=== PATIENT | female | born 1945 | race Caucasian/White ===

== ENCOUNTER → 2016-02-18 | Outpatient (CLI) | payer OTHER ==
--- NOTE | 2016-02-18 17:17 | DX ---
Right knee, 3 views History: Sudden onset medial pressure. Comparison: None available. Findings: No fracture is identified. Alignment is normal. Moderate osteoarthritis is present in the m edial compartment with mild to moderate joint space narrowing, subchondral sclerosis, and mild osteop hyte formation. There is moderate osteophyte formation in the lateral compartment without significant joint space narrowing. Small patellar osteophytes are present without significant joint space narrow ing. A small patellar enthesophyte is present at the insertion of the quadriceps tendon. There is no joint effusion. Impression: Mild to moderate osteoarthritis, most prominent in the medial compartment.
== END ==
LOC: GIMAGING 14:53
PROVIDERS: ATTEND Family Medicine
DX: M17.11 Unilateral primary osteoarthritis, right knee (principal)
CPT/HCPCS: 73562-PO

== ENCOUNTER → 2016-03-10 | Outpatient (CLI) | payer OTHER | LOC: BHLMT 14:00 | PROVIDERS: ATTEND Internal Medicine Cardiovascular Disease | DX: I71.9 Aortic aneurysm of unspecified site, without rupture (principal); I10 Essential (primary) hypertension; I08.0 Rheumatic disorders of both mitral and aortic valves | CPT/HCPCS: 93005-PO ==

== ENCOUNTER → 2016-03-18 | Outpatient (CLI) | payer OTHER | LOC: BHLMT 14:45 | PROVIDERS: ATTEND Internal Medicine Interventional Cardiology | DX: I35.0 Nonrheumatic aortic (valve) stenosis (principal); I71.9 Aortic aneurysm of unspecified site, without rupture | CPT/HCPCS: 93306-PO ==

== ENCOUNTER → 2017-03-24 | Outpatient (CLI) | payer OTHER | LOC: BHLMT 14:45 | PROVIDERS: ATTEND Internal Medicine Cardiovascular Disease | DX: I35.0 Nonrheumatic aortic (valve) stenosis (principal) | CPT/HCPCS: 93306-PO ==

== ENCOUNTER 2017-04-19 17:42 | Emergency (ER) | payer OTHER ==
[2017-04-19 17:50] VITALS: TEMP 97.9
--- NOTE | 2017-04-19 18:00 | EDPHY ---
H & P Stated Complaint: Intermittent tingling R side of body, sxs since Fri or Sat Time Seen by Provider: 04/19/17 17:59 HPI/ROS: CHIEF COMPLAINT: Intermittent right-sided paresthesias HISTORY OF PRESENT ILLNESS: The patient presents to the ED with a 2-3 history of intermittent vague right-sided paresthesias involving her hand and foot. The patient denies any associated weakness. She has no complaints of dysarthria or difficulty walking. The patient does have a chronic right facial droop which is unchanged. The patient does have a history of possible small CVA in 2013. At that point time she was noted to have normal cervical vessels. A brain MRI demonstrated no evidence of an obvious stroke. The patient was treated with tPA during that hospitalization. The patient denies any history of atrial fibrillation valvular heart disease. She has no additional complaints. The patient currently is asymptomatic. REVIEW OF SYSTEMS: A comprehensive 10 point review of systems is otherwise negative aside from elements mentioned in the history of present illness. Source: Patient Exam Limitations: No limitations - Personal History Current Tetanus Diphtheria and Acellular Pertussis (TDAP): Yes Tetanus Vaccine Date: 2012 - Medical/Surgical History Hx Asthma: No Hx Chronic Respiratory Disease: No Hx Diabetes: No Hx Cardiac Disease: No Hx Renal Disease: No Hx Cirrhosis: No Hx Alcoholism: No Hx HIV/AIDS: No Hx Splenectomy or Spleen Trauma: No Other PMH: Hysterectomy, Tonsils/Adenoids/, Tubal Lig, Rhinoplasty, Glaucoma, Dental Implants, Plate L wrist. enlarged heart, aortic root, CVA, fibromyalgia - Social History Smoking Status: Never smoked - Physical Exam Exam: General Appearance: Alert, no distress Eyes: Pupils equal and round no pallor or injection ENT, Mouth: Mucous membranes moist Respiratory: There are no retractions, lungs are clear to auscultation Cardiovascular: Regular rate and rhythm Gastrointestinal: Abdomen is soft and nontender, no masses, bowel sounds normal Neurological: Alert and oriented x4, moves all extremities with 5/5 strength, cranial nerves 2-12 intact, normal sellar ball function, NIH stroke scale is 0 Skin: Warm and dry, no rashes Musculoskeletal: Neck is supple nontender Extremities: symmetrical, full range of motion Constitutional: Initial Vital Signs Temperature (C) 36.6 C 04/19/17 17:46 Heart Rate 92 04/19/17 17:46 Respiratory Rate 16 04/19/17 17:46 Blood Pressure 154/101 H 18 17:46 O2 Sat (%) 96 04/19/17 17:46 O2 Delivery Mode Room Air Allergies/Adverse Reactions: morphine Allergy (Severe, Verified 04/19/17 17:56) Anaphylaxis iodine Allergy (Unknown, Verified 04/19/17 17:56) Anaphylaxis codeine Allergy (Verified 04/19/17 17:45) meperidine HCl [From Demerol] Allergy (Verified 04/19/17 17:45) oxycodone HCl [From Percodan] Allergy (Verified 04/19/17 17:45) oxycodone terephthalate [From Percodan] Allergy (Verified 04/19/17 17:45) propoxyphene HCl [From Darvon] Allergy (Verified 04/19/17 17:45) propoxyphene napsylate [From Darvocet-N] Allergy (Verified 04/19/17 17:45) Home Medications: Medication Instructions Recorded Albuterol Hfa Anes Only [Proair 2 puffs IH QID 04/19/17 Hfa Icu (*)] Aspirin [Aspirin 81mg (*)] 81 mg PO DAILY 18 Bifidobacterium Infantis [Align] 10.5 mg PO 04/19/17 Bupropion HCl [Bupropion HCl ER] 300 mg PO 04/19/17 Diclofenac Sodium 1% [Voltaren Gel 1 jair TP 04/19/17 (*)] Dorzolamide/Timolol [Cosopt (*)] 0 drops OPTH BID 04/19/17 Esomeprazole Magnesium [Nexium] 20 mg PO 04/19/17 Gabapentin [Neurontin 300 MG (*)] 300 mg PO HS 18 Hydrochlorothiazide [HCTZ (*)] 25 mg PO DAILY 18 Hydrocodone/Acetaminophen [Vicodin 1 each PO 04/19/17 5-300 mg Tablet] MILNACIPRAN HCL [Savella 100 mg] 100 mg PO 18 guaiFENesin [Mucinex 600 MG (*)] 600 mg PO BID 18 traZODone [traZODONE 50MG (*)] 50 mg PO 18 Medical Decision Making - Diagnostics EKG Interpretation: EKG: Complete interpretation has been separately recorded in the [facility] archive. Summary impression: Sinus rhythm, rate 82, inferior Q-waves unchanged from prior EKG. Imaging Results: Brain MRI without contrast: Images reviewed by myself and discussed with radiologist Dr. Cachorro Kolb. No evidence of an acute infarct, nonspecific white changes noted which were seen on prior imaging studies. Imaging: Discussed imaging studies w/ call worker person Radiologist, I viewed and interpreted images myself ED Course/Re-evaluation: I reviewed the patient's past medical records. She did have normal angiographic studies of her head and neck in 2013. Her NIH stroke scale is currently 0. She has had migratory paresthesias involving the right arm and leg for the past several days. She is currently on aspirin. The patient was taken for an MRI of her brain given her prior history and complaints. There is no evidence of an acute stroke noted on the studies today. The patient is currently on aspirin. The patient has no evidence of atrial fibrillation or uncontrolled hypertension. The patient had a negative carotid study several years ago. This point time I do feel the patient can be discharged home with instructions to follow up with her primary care provider and our on-call neurologist for further evaluation. The patient should return to the ED for any more significant neurologic symptoms, severe headache or other concerns. Differential Diagnosis: Differential diagnosis considered includes ischemic stroke, hemorrhagic stroke, TIA, carotid stenosis, arrhythmia, hypertension - Data Points Laboratory Results: Laboratory Results 04/19/17 18:20 18 18:20 18 04/19/17 18:20 18:20 WBC 7.68 10^3/uL 10^3/uL (3.80-9.50) RBC 4.32 10^6/uL 10^6/uL (4.18-5.33) Hgb 10.3 g/dL L g/dL (12.6-16.3) Hct 33.0 % L % (38.0-47.0) MCV 76.4 fL L fL (81.5-99.8) MCH 23.8 pg L pg (27.9-34.1) MCHC 31.2 g/dL L g/dL (32.4-36.7) RDW 19.1 % H % (11.5-15.2) Plt Count 464 10^3/uL H 10^3/uL (150-400) MPV 9.8 fL fL (8.7-11.7) Neut % (Auto) 57.1 % % (39.3-74.2) Lymph % (Auto) 29.3 % % (15.0-45.0) [place] % (Auto) 6.8 % % (4.5-13.0) Eos % (Auto) 5.9 % % (0.6-7.6) Baso % (Auto) 0.8 % % (0.3-1.7) Nucleat RBC Rel Count 0.0 % % (0.0-0.2) Absolute Neuts (auto) 4.39 10^3/uL 10^3/uL (1.70-6.50) Absolute Lymphs (auto) 2.25 10^3/uL 10^3/uL (1.00-3.00) Absolute Monos (auto) 0.52 10^3/uL 10^3/uL (0.30-0.80) Absolute Eos (auto) 0.45 10^3/uL H 10^3/uL (0.03-0.40) Absolute Basos (auto) 0.06 10^3/uL 10^3/uL (0.02-0.10) Absolute Nucleated RBC 0.00 10^3/uL 10^3/uL (0-0.01) Immature Gran % 0.1 % % (0.0-1.1) Immature Gran # 0.01 10^3/uL 10^3/uL (0.00-0.10) Sodium 141 mEq/L mEq/L (135-145) Potassium 3.6 mEq/L mEq/L (3.5-5.2) Chloride 101 mEq/L mEq/L (97-110) Carbon Dioxide 26 mEq/l mEq/l (22-31) Anion Gap 14 mEq/L mEq/L (8-16) BUN 13 mg/dL mg/dL (7-23) Creatinine 0.8 mg/dL mg/dL (0.6-1.0) Estimated GFR > 60 Glucose 98 mg/dL mg/dL (70-100) Calcium 9.0 mg/dL mg/dL (8.5-10.4) Departure - Departure Disposition: Home, Routine, Self-Care Clinical Impression: Paresthesias in right hand Condition: Good Instructions: Transient Ischemic Attack (ED) Additional Instructions: 1. Your brain MRI demonstrates no evidence of an obvious stroke. 2. Please follow up with a neurologist you have been referred to for further evaluation of any ongoing subtle symptoms. 3. Please return to the ED immediately for any severe headache, markedly worsening neurologic symptoms, difficulty with speech or ambulation. Referrals: Surendra Moe DO [Primary Care Provider] - As per Instructions Anoop Bach DO [Medical Doctor] - As per Instructions
[2017-04-19 18:35] LABS: PLATELET COUNT 464 10^3/uL (150-400)
--- NOTE | 2017-04-19 18:41 | CPEKG ---
Heart Rate: 82 RR Interval: 732 P-R Interval: 152 QRSD Interval: 92 QT Interval: 372 QTC Interval: 435 P [place]: 28 QRS [place]: 37 T Wave [place]: 14 EKG Severity - ABNORMAL ECG - EKG Impression: SINUS RHYTHM Electronically Signed By: Cheko Phan 19-Apr-2017 18:43:38
[2017-04-19 20:18] VITALS: BP 140/101; PULSE 85; RESP 18; O2SAT 99
== END 2017-04-19 20:36 | disposition home or self-care (01) ==
DX: R20.2 Paresthesia of skin (principal); Z79.82 Long term (current) use of aspirin; Z86.73 Personal history of transient ischemic attack (TIA), and cerebral infarction without residual deficits

== ENCOUNTER 2017-04-29 11:04 | Inpatient (IN) | payer OTHER ==
--- NOTE | 2017-04-29 11:19 | CPEKG ---
Heart Rate: 84 RR Interval: 714 P-R Interval: 160 QRSD Interval: 98 QT Interval: 420 QTC Interval: 497 P [place]: 0 QRS [place]: 24 T Wave [place]: 3 EKG Severity - ABNORMAL ECG - EKG Impression: SINUS RHYTHM EKG Impression: PROBABLE INFERIOR INFARCT, AGE INDETERMINATE EKG Impression: BORDERLINE PROLONGED QT INTERVAL Electronically Signed By: Conner Domínguez 29-Apr-2017 12:55:19
[2017-04-29 12:12] LABS: PLATELET COUNT 415 10^3/uL (150-400)
--- NOTE | 2017-04-29 12:31 | EDPHY ---
H & P Time Seen by Provider: 04/29/17 11:21 HPI/ROS: CHIEF COMPLAINT: Weakness and syncope HISTORY OF PRESENT ILLNESS: Patient does have a remote history of ulcer. She also has a history of bicuspid aortic valve and aortic stenosis. She has had some hemorrhoidal bleeding over the last 2 days as well. Patient has had about a week's worth of increasing fatigue, worse with exertion, not associated with shortness of breath or chest pain. 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 Arrival the patient still feels tired. Generalized weakness and not focal although she has some residual weakness after a previous stroke. Symptoms severe today. REVIEW OF SYSTEMS: Eye: no change in vision ENT: no sore throat Cardiac: No chest pain Pulmonary: no cough or SOB Abdomen: no vomiting, diarrhea, abdominal pain Musculoskeletal: no back pain Skin: no rash Neuro: no headache, tingling on the right side of her body for the last 2 weeks , negative MRI on April 19. Constitutional: no fever : no urinary symptoms A comprehensive 10 point review of systems is otherwise negative aside from elements mentioned in the history of present illness. PAST MEDICAL HISTORY: Includes hysterectomy, fibromyalgia, bicuspid aortic valve with aortic stenosis, glaucoma. Stroke. Social history: here with her , no alcohol General Appearance: Alert and conversant, cooperative. Eyes: No scleral icterus. Extraocular motion intact. ENT, Mouth: Normal mucous membranes. No tongue laceration or abrasion. Respiratory: Normal respiratory effort, breath sounds equal, lungs are clear to auscultation. Cardiovascular: Regular rate and rhythm. 3/6 systolic murmur. Gastrointestinal: Abdomen is soft and non tender. Neurological: Alert, fluent speech, face symmetric. She can move all extremities and has good line welder strength bilaterally. Her left leg is a little bit weaker coming off the bed. Skin: Warm and dry, no rashes. Musculoskeletal: No peripheral edema. Psychiatric: Not agitated. Emergency Department course/MDM: EKG shows sinus rhythm. She had an echo 2 weeks ago which showed stable aortic stenosis, with her anemia I think this is unlikely to be the primary cause. Likely GI bleed with hematocrit 21, results discussed with patient and family. Could be related to upper with previous history of ulcer, could also be related to her reported hemorrhoidal bleeding from lower over the last 2 days. Admission to step-down with GI consult. Transfusion discussed and consented with patient, severely low hemoglobin and hematocrit which is symptomatic. PRBC 1 unit ordered and started in ED. Smoking Status: Never smoked Constitutional: Initial Vital Signs Temperature (C) 36.9 C 04/29/17 11:21 Heart Rate 86 04/29/17 11:21 Respiratory Rate 16 04/29/17 11:21 Blood Pressure 119/91 H 04/29/17 11:21 O2 Sat (%) 94 04/29/17 11:21 O2 Delivery Mode Room Air Allergies/Adverse Reactions: morphine Allergy (Severe, Verified 04/19/17 17:56) Anaphylaxis iodine Allergy (Unknown, Verified 04/19/17 17:56) Anaphylaxis codeine Allergy (Verified 04/19/17 17:45) meperidine HCl [From Demerol] Allergy (Verified 04/19/17 17:45) oxycodone HCl [From Percodan] Allergy (Verified 04/19/17 17:45) oxycodone terephthalate [From Percodan] Allergy (Verified 04/19/17 17:45) propoxyphene HCl [From Darvon] Allergy (Verified 04/19/17 17:45) propoxyphene napsylate [From Darvocet-N] Allergy (Verified 04/19/17 17:45) Home Medications: Medication Instructions Recorded Aspirin [Aspirin 81mg (*)] 81 mg PO HS 04/19/17 Diclofenac Sodium 1% [Voltaren Gel 1 jair TP DAILY PRN 04/19/17 (*)] Dorzolamide/Timolol [Cosopt (*)] 1 drops EACHEYE BID 04/19/17 Gabapentin [Neurontin 300 MG (*)] 300 mg PO HS 04/19/17 Hydrochlorothiazide [HCTZ (*)] 25 mg PO DAILY 04/19/17 MILNACIPRAN HCL [Savella 100 mg] 150 mg PO HS 04/19/17 guaiFENesin [Mucinex 600 MG (*)] 600 mg PO BID 04/19/17 traZODone [traZODONE 50MG (*)] 50 mg PO HS 04/19/17 Albuterol [Proventil Inhaler HFA 1 - 2 puffs IH DAILY PRN 04/29/17 (*)] Esomeprazole Mag Trihydrate 40 mg PO HS 04/29/17 [Nexium] Herbals/Supplements -Info Only 1 ea PO DAILY 04/29/17 buPROPion SR [Wellbutrin 150mg SR 150 mg PO DAILY 04/29/17 (*)] buPROPion SR [Wellbutrin 150mg SR 150 mg PO HS PRN 04/29/17 (*)] Medical Decision Making - Diagnostics EKG Interpretation: 12-lead EKG interpreted by me; official reading is in trace master. My interpretation is sinus rhythm rate 84 with inferior Q-waves noted, borderline prolonged QT. Differential Diagnosis: Differential diagnosis considered for syncope including but not limited to vasovagal syncope, arrhythmia, dehydration, and blood loss. Consult/Admit Bed Type: [place] [id number] Critical Care Time: Critical care time spent by me, Dr. Domínguez, exclusively with the care of this patient was 30 minutes, exclusive of PA or SAFETY ADMINISTRATOR time and exclusive of separate procedures. The organ system at risk was hematologic and I ordered EKG, lab tests, multiple diagnostics, discussion with hospitalist and GI, blood transfusion to stabilize the patient and prevent worsening of the patient's condition. - Data Points Laboratory Results: Laboratory Results 04/29/17 12:00 04/29/17 12:00 04/29/17 04/29/17 12:00 12:00 WBC 7.14 10^3/uL 10^3/uL (3.80-9.50) RBC 2.74 10^6/uL L 10^6/uL (4.18-5.33) Hgb 6.6 g/dL L g/dL (12.6-16.3) Hct 21.2 % L % (38.0-47.0) MCV 77.4 fL L fL (81.5-99.8) MCH 24.1 pg L pg (27.9-34.1) MCHC 31.1 g/dL L g/dL (32.4-36.7) RDW 18.5 % H % (11.5-15.2) Plt Count 415 10^3/uL H 10^3/uL (150-400) MPV 9.6 fL fL (8.7-11.7) Neut % (Auto) 61.3 % % (39.3-74.2) Lymph % (Auto) 26.6 % % (15.0-45.0) [place] % (Auto) 8.3 % % (4.5-13.0) Eos % (Auto) 2.8 % % (0.6-7.6) Baso % (Auto) 0.7 % % (0.3-1.7) Nucleat RBC Rel Count 0.0 % % (0.0-0.2) Absolute Neuts (auto) 4.38 10^3/uL 10^3/uL (1.70-6.50) Absolute Lymphs (auto) 1.90 10^3/uL 10^3/uL (1.00-3.00) Absolute Monos (auto) 0.59 10^3/uL 10^3/uL (0.30-0.80) Absolute Eos (auto) 0.20 10^3/uL 10^3/uL (0.03-0.40) Absolute Basos (auto) 0.05 10^3/uL 10^3/uL (0.02-0.10) Absolute Nucleated RBC 0.00 10^3/uL 10^3/uL (0-0.01) Immature Gran % 0.3 % % (0.0-1.1) Immature Gran # 0.02 10^3/uL 10^3/uL (0.00-0.10) Platelet Estimate INCREASED H (ADEQ) Large Platelets PRESENT H Polychromasia 1+ H Hypochromasia 1+ H Microcytic Cells 1+ H Stomatocytes 1+ H Elliptocytes 1+ H Smear Review By Olinda DOLAN MD Sodium 143 mEq/L mEq/L (135-145) Potassium 4.0 mEq/L mEq/L (3.5-5.2) Chloride 104 mEq/L mEq/L (97-110) Carbon Dioxide 24 mEq/l mEq/l (22-31) Anion Gap 15 mEq/L mEq/L (8-16) BUN 18 mg/dL mg/dL (7-23) Creatinine 1.0 mg/dL mg/dL (0.6-1.0) Estimated GFR 54 Glucose 82 mg/dL mg/dL (70-100) Calcium 8.3 mg/dL L mg/dL (8.5-10.4) Troponin I < 0.012 ng/mL ng/mL (0.000-0.034) Medications Given: Discontinued Medications Pantoprazole Sodium (Protonix) 40 mg IVP EDNOW ONE Stop: 04/29/17 14:03 Last Admin: 04/29/17 14:16 Dose: 40 mg Departure - Departure Disposition: [facility] Inpatient Acute Clinical Impression: Syncope Qualifiers: Syncope type: unspecified Qualified Code(s): R55 - Syncope and collapse Anemia Qualifiers: Anemia type: unspecified type Qualified Code(s): D64.9 - Anemia, unspecified Condition: Good
[2017-04-29] MEDS ORDERED: PANTOPRAZOLE SODIUM 40 MG VIAL IVP ONE (14:02)
[2017-04-29] MEDS ORDERED: buPROPion SR 150 MG TAB PO PRN (14:35)
[2017-04-29] MEDS ORDERED: ALBUTEROL 60 PUFFS/8 GM MDI IH PRN (14:35)
[2017-04-29] MEDS ORDERED: DICLOFENAC SODIUM 1% 100 GM GEL TP PRN (14:35)
[2017-04-29] MEDS ORDERED: PROMETHAZINE HCL 25 MG/ML INJ IVP PRN (14:37)
[2017-04-29] MEDS ORDERED: ONDANSETRON 4 MG/2 ML VIAL IVP PRN (14:37)
--- NOTE | 2017-04-29 14:57 | GHP ---
[f rep st] HISTORY AND PHYSICAL DATE OF ADMISSION: 04/29/2017 CHIEF COMPLAINT: Syncope. 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 Patient states s he has been feeling tired over the past few days with some mild shortness of breath. Over the past 2 days, she has had some bleeding from her rectum which she has attributed to her hemorrhoids. She de nies any hematemesis or coffee-ground emesis. She takes Aleve every once in a while but has not had some for the past few days. She denies any chest pain. She was seen at [facility] Emergency Department on 04/20/19, due to tingling on the right side of her body. At that time, an MRI of her brain was done to umm gonzalez for stroke which was negative. She did have some mild anemia with a hemoglobin of 10.3 and a h ematocrit of 33. Prior to that, her hemoglobin was 12.8 back in May of 2016. PAST MEDICAL HISTORY: 1. Remote history of ulcers. 2. Stroke in 2013. 3. Aortic aneurysm. 4. Aortic stenosis. 5. Restless legs syndrome. 6. Hypertension. 7. Fibromyalgia. PAST SURGICAL HISTORY: Hysterectomy, rhinoplasty, tonsil and adenoidectomy, bilateral tubal ligation , cholecystectomy, left wrist ORIF, cataract surgery bilaterally. HOME MEDICATIONS: Reviewed. Refer to [facility] for details. ALLERGIES: Morphine, iodine, codeine, Demerol, oxycodone, propoxyphene. SOCIAL HISTORY: Patient is and lives in [place]. She denies any alcohol or tobacco use. FAMILY HISTORY: Reviewed and noncontributory. REVIEW OF SYSTEMS: Comprehensive 10-point review of systems was done and is negative, except for as mentioned in the HPI. PHYSICAL EXAMINATION: VITAL SIGNS: Blood pressure 135/92, pulse of 86, respiratory rate 16, O2 sat 100% on room air. Temperature afebrile. GENERAL: No acute distress. HEENT: Head normocephalic, a traumatic. Pale conjunctivae. Mouth, moist mucous membranes. NECK: Supple. No lymphadenopathy. CARDIOVASCULAR: S1, S2. No JVD. No lower extremity edema. There is a systolic murmur right upper sternal border. PULMONARY: Lungs are clear. No wheezes, rales, or rhonchi. ABDOMEN: Soft, nonten ricki, nondistended. No guarding or rebound tenderness. Normoactive bowel sounds. EXTREMITIES: No c lubbing or cyanosis. NEURO: Cranial nerves 2-12 grossly intact. No focal motor or sensory deficits . SKIN: Clear. No rashes. DIAGNOSTICS: WBC 7.14, hemoglobin 6.6, hematocrit 21.2, platelets 415 with 1+ microcytic cells, 1+ e lliptocytes, 1+ hypochromasia. Sodium 143, potassium 4, chloride 104, BUN 18, creatinine 1, glucose 82, calcium 8.3, troponin was negative. Brain MRI, done 04/19/2017, was reviewed. EKG done today, randi marte and personally interpreted, shows sinus rhythm, rate 84 beats per minute. No acute ischemic changes. ASSESSMENT AND PLAN: This is a 72-year-old female, presented to the emergency department by EMS, wit h: 1. Syncope, most likely due to below. 2. Acute blood loss anemia secondary to below. 3. Suspect lower gastrointestinal bleed, given bright red blood per rectum. 4. Right-sided paresthesias, possibly related to iron deficiency anemia. PLAN: 1. Admit to inpatient. 2. Monitor H and H. 3. Blood type and screen and transfuse per hospital protocol. One unit of packed red blood cells pascal s already been ordered. 4. Dr. Marvin Coyle with [facility] has been consulted to evaluate for need for endoscopy. The patient will be placed n.p.o. 5. Check iron studies. Patient requests to be full code status. /[id number]/MODL
[2017-04-29 15:27] LABS: INR 1.1 (0.83-1.16); PROTIME(PATIENT) 14.4 SEC (12.0-15.0)
[2017-04-29] MEDS ORDERED: PEG 3350/NA SULF,BICARB,CL/KCL (GAVILYTE-G) 4000 ML BTL PO ONE (20:11)
[2017-04-29] MEDS ORDERED: MILNACIPRAN HCL 150 MG PO SCH (21:00)
--- NOTE | 2017-04-29 21:03 | GCON ---
[f rep st] CONSULTATION INPATIENT CONSULTATION REFERRING PHYSICIAN: Óscar Saenz DO REASON FOR CONSULTATION: Anemia and blood in stool. HISTORY OF PRESENT ILLNESS: Briefly, the patient is a pleasant 72-year-old female who was admitted to the hospital on 04/29/2017 for the evaluation of fatigue and blood in stool. She reports she was in her usual state of health until approximately 2 weeks ago. She began noticing some right-sided tingling and weakness. She was evaluated in the emergency room. At that time, she was noted to be anemic, but there were no other acute changes. She was discharged home. Today, while at [employer], she may have had a presyncopal episode. She describes feeling increasing fatigue and lack of energy. In addition, she reported several bright red bloody bowel movements. With these symptoms, she re -presented to the emergency room for evaluation. She was noted to have a fairly profound anemia. Of note, she reports that her bowel movements recently have been brown, but surrounded by blood. She reports no nausea or vomiting. She has had no hematemesis. She denies any episodes of obvious melena. PAST MEDICAL HISTORY: Includes remote history of ulcer, CVA in 2013, history of aortic stenosis as well as aortic aneurysm, restless legs syndrome, hypertension, and fibromyalgia. PAST SURGICAL HISTORY: Includes hysterectomy, tubal ligation, cholecystectomy. OUTPATIENT MEDICATIONS: Included include aspirin, diclofenac gel, Cosopt, Neurontin, hydrochlorothiazide, Savella, Mucinex, trazodone, Proventil, Nexium, and Wellbutrin. ALLERGIES: Morphine, iodine, codeine, Demerol, oxycodone and propoxyphene. SOCIAL HISTORY: She is , lives in [place]. She does not drink or smoke. FAMILY HISTORY: Negative for colon cancer or colon polyps. REVIEW OF SYSTEMS: A complete 14-point review was undertaken with the patient and is negative except for those details described in the History of Present Illness. PHYSICAL EXAM: GENERAL: This is a well-developed female in no apparent distress. HEENT: Her pupils are equal, round, reactive to light and accommodation. Her sclerae are nonicteric. Oropharynx is clear. NECK: Supple without lymphadenopathy. HEART: Regular without murmur. ABDOMEN: Soft , nontender. She has normoactive bowel sounds. EXTREMITIES: Free of cyanosis , clubbing, edema. Her joints show no arthritis. PSYCH: Normal mood and affect. SKIN: Warm and dry without rash. LABORATORY TESTING: Reveals a white count of 7.1, hemoglobin of 6.6, hematocrit of 21.4, platelet count of 419. INR 1.1. Sodium of 143, potassium of 4.0, chloride of 104, bicarb of 24, BUN of 18, creatinine of 1.0. Iron of 22 , TIBC of 406, iron sat of 5, ferritin of 4.2. AST, ALT, alkaline phosphatase, total bilirubin and albumin are normal. IMPRESSION/RECOMMENDATIONS: Anemia. The patient has a fairly profound anemia associated with iron deficiency. Of note, she also has some bloody stool. She , confusingly, reports brown stools. It is possible that she has had a gradually worsening anemia (as evidenced by her low iron) recently exacerbated by some more acute rectal bleeding syndrome. The differential diagnosis could include malignancy, cancer, ulcer, enteritis. Upper GI sources of bleeding as well are possible. At this time, I recommend she remain n.p.o. on a proton pump inhibitor. Will arrange for her to have a laxative purge, she will undergo upper and lower endoscopy tomorrow. Given her obesity, fibromyalgia, and chronic obstructive pulmonary disease, she is at increased risk of sedation. Will invite Anesthesia services to help with this. /[id number]/MODL MTDD
[2017-04-29] MEDS: Milnacipran Hcl [Savella 100 Mg] PO SCH (21:37)
[2017-04-29] MEDS: GABAPENTIN 300 MG CAP PO SCH (21:37)
[2017-04-29] MEDS: DORZOLAMIDE/TIMOLOL 10 ML OPHT.BTL EACHEYE SCH (21:38)
[2017-04-30] MEDS: traZODone 50 MG TAB PO SCH ×2 (00:41→21:27)
[2017-04-30] MEDS: ACETAMINOPHEN 325 MG TAB PO PRN ×3 (05:06→18:35)
--- NOTE | 2017-04-30 08:55 | PDMN ---
Medical Necessity Medical necessity: est los>2mn for suspected GIB r/t BRBPR, acute blood loss anemia (h&h 6.6/21.2) and syncope; admit for GI consult/upper & lower endoscopies w/assist from anesthesia r/t sedation risks, monitor H&H, transfuse per protocol, IV PPI; comorbid obesity, fibromyalgia, COPD, /aortic aneurysm, htn, hx CVA and ulcers; per order and H&P, GI consult 04/29/17
--- NOTE | 2017-04-30 09:25 | ASMTCMCOM ---
CM Note CM Note Notes: Chart reviewed. 72 year old patient that was admitted via ED for syncopal episode. She normally lives independent with her . She was profoundly anemic. GI consulted. Needs to be determined. CM to follow. Date Signed: 04/30/2017 09:25 AM Electronically Signed By:Marley Skaggs RN
[2017-04-30] MEDS: buPROPion SR 150 MG TAB PO SCH (09:56)
[2017-04-30] MEDS: DORZOLAMIDE/TIMOLOL 10 ML OPHT.BTL EACHEYE SCH ×2 (09:57→21:28)
[2017-04-30] MEDS: PANTOPRAZOLE SODIUM 40 MG VIAL IVP SCH (10:22)
[2017-04-30] MEDS ORDERED: NS 1,000 ML IV SCH (12:00)
--- NOTE | 2017-04-30 12:10 | GCON ---
[f rep st] CONSULTATION CRITICAL CARE CONSULTATION DATE OF CONSULTATION: 04/30/2017 HISTORY OF PRESENT ILLNESS: This patient is a 72-year-old female with a history of peptic ulcer dise ase and hypertension who presented to the emergency department yesterday after a syncopal event. She apparently had bright red blood per rectum, was recently seen at [facility] for right- sided paresthesias, had an MRI that was negative and her hemoglobin was 10 at that time. However, at this admission, her hemoglobin was down to 6. She had a thorough evaluation both by the hospitalist as well as the emergency department. There were no obvious cardiac arrhythmias or other causes for her syncope and she was admitted to step-down unit overnight. She has been relatively stable, though she was complaining of a headache, which was not typical of her previous migraine. REVIEW OF SYSTEMS: Otherwise negative. PAST MEDICAL HISTORY: 1. Peptic ulcer disease. 2. Stroke in 2013. 3. Abdominal aneurysm. 4. Aortic stenosis. 5. Restless leg syndrome. 6. Hypertension. 7. Fibromyalgia. PAST SURGICAL HISTORY: Includes hysterectomy, rhinoplasty, tonsillectomy, tubal ligation, cholecyste ctomy, wrist surgery, and cataracts. SOCIAL HISTORY: She is a nonsmoker. No alcohol or IV drug use. CURRENT MEDICATIONS: Include Tylenol, Proventil, Wellbutrin, Cosopt, Neurontin, Zofran, Protonix, Ph energan, trazodone q.h.s. PHYSICAL EXAMINATION: VITAL SIGNS: She was afebrile, had blood pressure 120/71, heart rate 84, resp irations 21, oxygen saturation 98% on room air. GENERAL: She was alert and oriented x3, in no appar ent distress. Able to speak in full sentences without using accessory muscles for breathing. HEENT: Pupils equally round and reactive to light. Nonicteric and noninjected. Mucous membranes moist, w ithout erythema or exudate. NECK: Supple, without adenopathy or jugular vein distention. LUNGS: B reath sounds were clear to auscultation bilaterally, without wheezes or rales. HEART: Regular rate and rhythm, with a 2/6 systolic ejection murmur. ABDOMEN: Soft, nontender, nondistended, without he patosplenomegaly. EXTREMITIES: Show no clubbing, cyanosis, or edema. NEUROLOGIC: Nonfocal. LABS: Include a white count of 7.14, hematocrit of 21.2, platelets of 415. After a unit of blood he r hemoglobin was at 7.8, and hematocrit 23.9. Coags were normal. Basic metabolic panel was normal. LFTs were normal. Troponin was negative. ASSESSMENT/PLAN: 1. Probable gastrointestinal bleed. She has been seen by GI and is going to get a scope today from above and below. I will continue to follow her blood counts and give her transfusions as necessary a nd continue her PPI drip for now. 2. Syncope. This is very likely related to blood loss anemia. She seems to be doing better symptom atically. We have given her some additional IV fluids. Hopefully, that will clear up her headache. /[id number]/MODL
[2017-04-30] MEDS ORDERED: LR 1,000 ML IV ONE (13:22)
--- NOTE | 2017-04-30 14:54 | PDANEPAE ---
ANE Past Medical History - Pulmonary History Hx Oxygen in Use at Home: No Hx Sleep Apnea: No Sleep Apnea Screening Result - Last Documented: Negative - Endocrine History Hx Diabetes: No - Chronic Pain History Chronic Pain: Yes ANE Review of Systems Review of Systems: ANE Patient History - Allergies Allergies/Adverse Reactions: morphine Allergy (Severe, Verified 04/19/17 17:56) Anaphylaxis iodine Allergy (Unknown, Verified 04/19/17 17:56) Anaphylaxis codeine Allergy (Verified 04/19/17 17:45) meperidine HCl [From Demerol] Allergy (Verified 04/19/17 17:45) oxycodone HCl [From Percodan] Allergy (Verified 04/19/17 17:45) oxycodone terephthalate [From Percodan] Allergy (Verified 04/19/17 17:45) propoxyphene HCl [From Darvon] Allergy (Verified 04/19/17 17:45) propoxyphene napsylate [From Darvocet-N] Allergy (Verified 04/19/17 17:45) - Home Medications Home Medications: Aspirin [Aspirin 81mg (*)] 81 mg PO HS 04/19/17 [Last Taken 04/28/17] Diclofenac Sodium 1% [Voltaren Gel (*)] 1 jair TP DAILY PRN 04/19/17 [Last Taken 2 Weeks Ago ~04/15/17] Dorzolamide/Timolol [Cosopt (*)] 1 drops EACHEYE BID 04/19/17 [Last Taken ] Gabapentin [Neurontin 300 MG (*)] 300 mg PO HS 04/19/17 [Last Taken 04/28/17] Hydrochlorothiazide [HCTZ (*)] 25 mg PO DAILY 04/19/17 [Last Taken 04/28/17] MILNACIPRAN HCL [Savella 100 mg] 100 mg PO HS 04/19/17 [Last Taken 04/28/17] guaiFENesin [Mucinex 600 MG (*)] 600 mg PO BID 04/19/17 [Last Taken 04/28/17 21: 00] traZODone [traZODONE 50MG (*)] 50 mg PO HS 04/19/17 [Last Taken 04/28/17] Albuterol [Proventil Inhaler HFA (*)] 1 - 2 puffs IH DAILY PRN 04/29/17 [Last Taken Unknown] Esomeprazole Mag Trihydrate [Nexium] 40 mg PO HS 04/29/17 [Last Taken 04/28/17] Herbals/Supplements -Info Only 1 ea PO DAILY 04/29/17 [Last Taken Unknown] buPROPion SR [Wellbutrin 150mg SR (*)] 150 mg PO DAILY 04/29/17 [Last Taken ] buPROPion SR [Wellbutrin 150mg SR (*)] 150 mg PO HS PRN 04/29/17 [Last Taken Unknown] - NPO status NPO Since - Liquids (Date): 04/30/17 NPO Since - Liquids (Time): 00:00 NPO Since - Solids (Date): 04/30/17 NPO Since - Solids (Time): 00:00 - Smoking Hx Smoking Status: Never smoked ANE Labs/Vital Signs - Labs Result Diagrams: 04/30/17 12:30 04/30/17 05:15 - Vital Signs Blood Pressure: 145/79 Heart Rate: 77 Respiratory Rate: 18 O2 Sat (%): 98 Height: 160.02 cm Weight: 70.307 kg ANE Physical Exam - Airway Neck exam: FROM Mallampati Score: Class 3 - Pulmonary Pulmonary: no respiratory distress - Cardiovascular Cardiovascular: regular rate and rhythym - ASA Status ASA Status: III ANE Anesthesia Plan Total IV Anesthesia: Yes
--- NOTE | 2017-04-30 14:56 | HOSPPROG ---
Hospitalist Progress Note Assessment/Plan: # likely lower GIB - colonoscopy and EGD today # ABLA - s/p transfusion of 1U PRBC - also likely chronic component with very low Fe - cont iron supplement # FMG - savella, gabapentin, voltaren # syncope - likely d/t ABLA # R sided paraesthesias - possible related to anemia # htn - hold hctz # dvt ppx - SCDs # FCFT Subjective: no more bleeding; long discussion with patient and regarding plans Objective: Vital Signs Temp Pulse Resp BP Pulse Ox 36.6 C 77 18 145/79 H 98 04/30/17 13:19 04/30/17 13:19 04/30/17 13:19 04/30/17 13:19 04/30/17 13:19 Laboratory Results 04/30/17 12:30 04/30/17 05:15 04/29/17 04/30/17 05/01/17 05:59 05:59 05:59 Intake Total 2965 Balance 2965 PT 14.4 SEC (12.0-15.0) 04/29/17 15:10 INR 1.10 (0.83-1.16) 04/29/17 15:10 chart reviewed - Time Spent With Patient Time Spent with Patient: greater than 35 minutes Time Spent with Patient: Greater than 35 minutes spent on this patients care, greater than 50% of time spent counseling, educating, and coordinating care regarding the above mentioned plan. 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
[2017-04-30] MEDS ORDERED: PROPOFOL/EMULSION 500 MG/50 ML BOTTLE IV ONE (14:58)
[2017-04-30] MEDS ORDERED: fentaNYL 100 MCG/2 ML INJ ONE (14:58)
[2017-04-30] MEDS ORDERED: LIDOCAINE 2% 100 MG/5 ML SYR ONE (15:02)
[2017-04-30] MEDS ORDERED: fentaNYL 100 MCG/2 ML INJ IVP PRN (15:52)
[2017-04-30] MEDS ORDERED: NALOXONE HCL 0.4 MG/ML INJ IVP PRN (15:52)
--- NOTE | 2017-04-30 15:53 | POSTANESTH ---
Post Anesthetic Evaluation Cardiovascular Status: Similar to Pre-Op Cond Respiratory Status: Similar to Pre-op Cond. Level of Consciousness/Mental Status: Mildly Sleepy, Arousable Pain Control: Adequate, Prn Tx Ordered Nausea/Vomiting Control: Adequate, Prn Tx Ordered Complications Possibly Related to Anesthesia: None Noted
--- NOTE | 2017-04-30 15:56 | GIREPORT ---
[facility] Surgical Services - Endoscopy Department Patient Name: Abbi Webster Procedure Date: 04/30/2017 2:53 PM Patient Type: Inpatient Attending MD/ ER Physician: Marvin Coyle MD Procedure: Upper GI endoscopy Indications: Acute post hemorrhagic anemia, Iron deficiency anemia Providers: Marvin Coyle MD Medicines: Sedation Administered by an Anesthesia Professional Complications: No immediate complications. Description of Procedure: After obtaining informed consent, the endoscope was passed under direct vision. Throughout the procedure, the patient's blood pressure, pulse, and oxygen saturations were monitored continuously. The Endoscope was intro duced through the mouth, and advanced to the third part of duodenum. The uppe r GI endoscopy was accomplished without difficulty. The patient tolerated th e procedure well. Findings: The examined esophagus was normal. The entire examined stomach was normal. The examined duodenum was normal. Biopsies for histology were taken wit h a cold forceps for evaluation of celiac disease. Estimated Blood Loss: Estimated blood loss: none. Post Op Diagnosis: - Normal esophagus. - Normal stomach. - Normal examined duodenum. Biopsied. Recommendation: - Perform a colonoscopy today. - No source of bleeding. No evidence of recent bleeding. Attending Participation: I personally performed the entire procedure. Marvin Coyle MD Marvin Coyle MD 04/30/2017 3:56:14 PM This report has been signed electronicallyDaus Leonides MD Number of Addenda: 0 Note Initiated On: 04/30/2017 2:53 PM Total Procedure Duration Time 0 hours 2 minutes 25 seconds [email or web address]
--- NOTE | 2017-04-30 16:05 | GIREPORT ---
[facility] Surgical Services - Endoscopy Department Patient Name: Abbi Webster Procedure Date: 04/30/2017 2:55 PM Patient Type: Inpatient Attending MD/ ER Physician: Marvin Coyle MD Procedure: Colonoscopy Indications: Hematochezia, Iron deficiency anemia Providers: Marvin Coyle MD Medicines: Sedation Administered by an Anesthesia Professional Complications: No immediate complications. Description of Procedure: After obtaining informed consent, the scope was passed under direct vis ion. Throughout the procedure, the patient's blood pressure, pulse, and oxyg en saturations were monitored continuously. The Colonoscope with irrigatio n channel was introduced through the anus and advanced to the cecum, identified by appendiceal orifice and ileocecal valve. The colonoscopy was performed without difficulty. The patient tolerated the procedure well. The quality of the bowel preparation was good. The ileocecal valve, appendi ceal orifice, and rectum were photographed. Findings: The entire examined colon appeared normal. Non-bleeding external hemorrhoids were found during retroflexion. The hemorrhoids were medium-sized. Estimated Blood Loss: Estimated blood loss: none. Post Op Diagnosis: - The entire examined colon is normal. - Non-bleeding external hemorrhoids. - No specimens collected. Recommendation: - Return patient to [facility] care. - To visualize the small bowel, perform video capsule endoscopy. - Resume regular diet. - Consider topical hemorrhoid therapies. - If has acute bleeding could consuderl tagged cell and Ir intervention . - Overall, however, suspect gradually progressive iron deficiency and s ome associated rectal bleeding from hemorrhoids. Attending Participation: I personally performed the entire procedure. Marvin Coyle MD Marvin Coyle MD 04/30/2017 4:05:22 PM This report has been signed electronicallyDaus Leonides MD Number of Addenda: 0 Note Initiated On: 04/30/2017 2:55 PM Total Procedure Duration Time 0 hours 23 minutes 30 seconds [email or web address]
[2017-04-30] MEDS: GABAPENTIN 300 MG CAP PO SCH (21:27)
[2017-04-30] MEDS: Milnacipran Hcl [Savella 100 Mg] PO SCH (21:53)
[2017-05-01] MEDS: ACETAMINOPHEN 325 MG TAB PO PRN (09:15)
[2017-05-01] MEDS: DORZOLAMIDE/TIMOLOL 10 ML OPHT.BTL EACHEYE SCH ×2 (09:15→23:33)
[2017-05-01] MEDS: buPROPion SR 150 MG TAB PO SCH (09:15)
[2017-05-01] MEDS: PANTOPRAZOLE SODIUM 40 MG VIAL IVP SCH (09:15)
[2017-05-01] MEDS ORDERED: SODIUM FERRIC GLUCONAT/SUCROSE 125 MG in NS 100 ML IV SCH (13:00)
--- NOTE | 2017-05-01 13:45 | SOAPPROG ---
SOAP Progress Note Assessment/Plan: Assessment: LOLLY with negative EGD/Colonoscopy. Plan: 1. Continue to monitor H/H. 2. Hopefully home tomorrow with outpatient F/U capsule endoscopy. Jose David Mathis MD 05/01/17 13:42 Subjective: CC: LOLLY with severe anemia. Interval HPI: Patient still somewhat weak. Worried that she is too weak to go home today. Tolerating regular diet. Objective: Vital Signs Temp Pulse Resp BP Pulse Ox 36.8 C 76 16 128/57 H 98 05/01/17 11:45 05/01/17 11:45 05/01/17 11:45 05/01/17 11:45 05/01/17 11:45 Laboratory Results 05/01/17 11:35 04/30/17 05:15 04/30/17 05/01/17 05/02/17 05:59 05:59 05:59 Intake Total 2965 876 Output Total 0 Balance 2965 876 PT 14.4 SEC (12.0-15.0) 04/29/17 15:10 INR 1.10 (0.83-1.16) 04/29/17 15:10 Physical Exam - Physical Exam General Appearance: WD/WN, alert, no apparent distress Respiratory: lungs clear, normal breath sounds Cardiac/Chest: normal peripheral pulses, regular rate, rhythm Abdomen: normal bowel sounds, non-tender, soft Skin: normal color, warm/dry Neuro/Psych: no motor/sensory deficits, alert, normal mood/affect ICD10 Worksheet Patient Problems: Problems Problem Status Onset Anemia Acute Syncope Acute 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
[2017-05-01] MEDS: IRON GLUCONATE PO SCH (17:00)
--- NOTE | 2017-05-01 17:07 | HOSPPROG ---
Hospitalist Progress Note Assessment/Plan: Subjective Follow-up on acute blood loss anemia I reviewed with the patient that her endoscopy and colonoscopy did not reveal any source of her bleeding. I did discuss further blood work would suggest more chronic blood losses resulting in iron deficiency anemia. She states that in the past she has been intolerant of oral iron secondary to abdominal upset. I discussed with her the possibility of using ferrous gluconate instead of ferrous sulfate which may be better tolerated. She is open to this possibility and her was able to go to pharmacy in obtain ferrous gluconate tablets for us to try today. We did also attempt IV iron however she developed some muscle twitching which may be related. No anaphylactic reaction symptoms developed. We discussed going home today her she was somewhat unsure of herself due to the degree of dizziness she experienced last week. We discussed that we would consult Physical therapy on her case and see how she does with ambulation. We discussed we would recheck a hemoglobin tomorrow morning and then decide from there. Objective Vital signs as detailed below Exam General-patient appears comfortable she is awake alert conversant no acute distress Heart-regular rate and rhythm no murmurs are appreciated except at the right upper sternal border where she has a systolic ejection murmur which sounds consistent with her history of aortic stenosis Lungs-Clear to auscultation normal respiratory effort Abdomen-soft nontender nondistended -no Ibarra catheter in place Extremities-no significant pitting edema Musculoskeletal-no calf pain with palpation Skin-pale Labs As detailed below Assessment and plan 1. Acute blood loss anemia-this may be acute losses from hemorrhoids on top of chronic iron deficiency anemia. She is iron deficient by her iron studies I attempted IV iron today however she developed muscle twitching which could be related so we have stopped this at this time. We are going to try oral ferrous gluconate. I also did encourage her to create increase the iron in her diet. Tentatively we will also plan on outpatient follow-up with GI to entertain the possibility of capsule endoscopy. 2. GI bleed-this may have been hemorrhoidal in nature however will plan on outpatient GI follow-up to discuss capsule endoscopy. 3. History of CVA- aspirin on hold in light of bleeding. I do not see that she is on statin therapy. 4. Hypertension-no current antihypertensive therapy. Continue to monitor. 5. Aortic stenosis-patient states she has outpatient follow-up with Cardiology she has had follow-up in the past 1 year. She states that her most recent imaging showed stability of the degree of aortic stenosis. No surgery was felt to be indicated at this time. 6. Bowel and bladder-we also had discussion today on holding proton pump inhibitor as this may impair her ability to absorb iron. She was agreeable to this. 7. Disposition-I have placed a consult for physical therapy today will see how she does with ambulation and plan on rechecking hemoglobin level tomorrow morning. Likely could discharge tomorrow if continued stability and if she is able to ambulate appropriately. 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
[2017-05-01] MEDS: traZODone 50 MG TAB PO SCH (20:40)
[2017-05-01] MEDS: GABAPENTIN 300 MG CAP PO SCH (20:40)
[2017-05-01] MEDS: Milnacipran Hcl [Savella 100 Mg] PO SCH (23:33)
[2017-05-02] MEDS ORDERED: traZODone 50 MG TAB PO ONE (01:07)
[2017-05-02 06:50] LABS: PLATELET COUNT 445 10^3/uL (150-400)
[2017-05-02] MEDS: IRON GLUCONATE PO SCH (09:02)
[2017-05-02] MEDS: DORZOLAMIDE/TIMOLOL 10 ML OPHT.BTL EACHEYE SCH (09:02)
[2017-05-02 09:11] VITALS: BP 140/71; PULSE 76; RESP 17; TEMP 97.7; O2SAT 95
[2017-05-02] MEDS: buPROPion SR 150 MG TAB PO SCH (09:49)
[2017-05-02] MEDS: ACETAMINOPHEN 325 MG TAB PO PRN (10:03)
--- NOTE | 2017-05-02 12:49 | ASMTLACE ---
LACE Length of stay for Answers: 3 days current admission Acuity / Level of Answers: Yes Care: Did the patient have an inpatient admission? Comorbidities - select Answers: Cerebrovascular disease all that apply (CVA, TIA, aneurysms, vasc ular dementia) # of Emergency department Answers: 1-2 visits in the last 6 months Score: 8 Date Signed: 05/02/2017 12:49 PM Electronically Signed By:Neha Lobo RN
--- NOTE | 2017-05-02 12:52 | ASDISCHSUM ---
Discharge Information Plan Status:Home with No Needs Medically Cleared to Leave:05/02/2017 Discharge Date:05/02/2017 CM D/C Disposition:Home, Routine, Self-Care ADT D/C Disposition:Home, Routine, Self-Care Projected Discharge Date:05/02/2017 Transportation at D/C:Family Discharge Delay Reason: Follow-Up Date:05/02/2017 Discharge Slot: Final Diagnosis: Placement Information Patient Contact Information Contact Name:ASHLEIGH Relationship: Address:[address] [place] Alternate Phone: [facility]/Zip Code:[place] [address] Email: Financial Information Financial Class:Medicare Primary Plan Desc:MEDICARE INPATIENT Primary Plan Number:[id number] [facility] Secondary Plan Number:[id number] Assessment Information LACE LACE Length of stay for Answers: 3 days current admission Acuity / Level of Answers: Yes Care: Did the patient have an inpatient admission? Comorbidities - select Answers: Cerebrovascular disease all that apply (CVA, TIA, aneurysms, vasc ular dementia) # of Emergency department Answers: 1-2 visits in the last 6 months Score: 8 Date Signed: 05/02/2017 12:49 PM Electronically Signed By:Neha Lobo RN [facility] CM Progress Note CM Note CM Note Notes: Chart reviewed. 72 year old patient that was admitted via ED for syncopal episode. She normally lives independent with her . She was profoundly anemic. GI consulted. Needs to be determined. CM to follow. Date Signed: 04/30/2017 09:25 AM Electronically Signed By:Marley Skaggs RN Case Management Discharge Plan Note Case Management Discharge Discharge Order Complete? Answers: Yes Patient to Obtain Answers: Independently Medications Transportation Arranged Answers: Family/Friends Family Notified Answers: Yes Notes: in room Discharge Comments Notes: 05/02/2017 Case Management Note Met w/pt and Zach [phone]. IM completed. Pt unwilling to commit to homebound status and declined home care services. Pt has appointments scheduled for follow up next week. PT to d/c independent. to transport home. Date Signed: 05/02/2017 12:51 PM Electronically Signed By:Neha Lobo RN Intervention Information Intervention Type:*IM-Signed Date of Service:05/02/2017 12:51 PM Patient Type:Inpatient Staff Member:EMBER Lobo, Neha Hours: Discipline: Severity: Comment:
--- NOTE | 2017-05-02 15:14 | GDS ---
[f rep st] DISCHARGE SUMMARY IN-HOSPITAL CONSULTANTS: 1. Dr. Coyle, GI. 2. Dr. Garrison of Pulmonary Critical Care Medicine. DISCHARGE DIAGNOSES: 1. Iron deficiency anemia. 2. Lower gastrointestinal bleeding, suspecting hemorrhoidal bleed. HISTORY OF PRESENT ILLNESS: The patient is a pleasant 72-year-old female, with a past medical histor y of hypertension and prior CVA with no apparent residual deficits, who presented to the [facility] Emergency Room on 04/29/2017, after she apparently became weak and [facility] out [facility]. She had also had that day bright red blood per rectum and presented with a hemoglobin of 6.6. Bl ood transfusion was ordered, and GI was consulted. She had a colonoscopy and endoscopy performed. T hese did not reveal any source of bleeding. There were external hemorrhoids noted, but they were not noted to be bleeding. The suspicion was for progressive iron deficiency anemia, and she may have pascal d some acute bleeding from her hemorrhoids. We had a long discussion during the hospitalization miranda louing increasing her iron. I did encourage her to get as much iron as she can through her diet. I t hink red meat would be appropriate if she is willing to have this is a part of her diet. We did disc uss iron supplementation as well. Apparently in the past, she has had difficulty tolerating oral iro n. This dates back many years ago when she was menstruating. We did try ferrous gluconate, and her was able to pick some up at a local pharmacy, but she has not tried this as of yet. We did t ry a dose of IV iron while she was here in the hospital. Most of the bag was able to be administered . However, she developed some muscle cramping, and so this was stopped. I think she may not tolerat e IV iron, making the oral supplementation of iron more important which I did discuss with her. HOSPITAL COURSE BY PROBLEM: 1. Acute blood loss anemia. Patient was transfused a unit of blood during this hospitalization. He r hemoglobin did improve appropriately up to 8. Her hemoglobin was 8.2 yesterday and 8.0 today. Cli nically, without any significant bleeding either. The source of her anemia appears to be severe iron deficiency anemia but with acute rectal bleeding which could be hemorrhoidal related. 2. GI bleed. We did not exclude the possibility of small bowel bleeding, and patient has been refer red for consideration of small bowel capsule endoscopy. 3. History of CVA. I have recommended patient hold aspirin therapy for 1 week and then resume. I d o not believe she is on any statin therapy. 4. Hypertension. No adjustments made during this hospitalization. 5. Aortic stenosis. Patient has ongoing cardiology followup. 6. Esophageal reflux. Patient has long-term use of proton pump inhibitor. I recommend that she sto p this at this point in time to help facilitate the absorption of oral iron. DISPOSITION: She appears stable for discharge back home today under the care of her who was quite involved with her care while here in the hospital. EXAM ON DAY OF DISCHARGE: VITAL SIGNS: Temperature 36.5, blood pressure 140/71, heart rate 76, resp irations 17, saturating 95% on room air. GENERAL: Patient resting comfortably in bed. No acute dis tress. HEART: Regular. No murmurs, other than at the right upper sternal border, which has a murmu r consistent with aortic stenosis. LUNGS: Clear to auscultation. Normal respiratory effort. ABDOM EN: Soft, nontender, nondistended. : No Ibarra catheter in place. EXTREMITIES: No significant p itting edema. NOTABLE STUDIES: Serum ferritin 4.2, percent sat 5%, serum iron 22, total iron binding capacity 406. Vitamin B12 is 555. DISCHARGE MEDICATIONS: 1. Albuterol inhaler as needed. 2. Aspirin 81 mg daily, to be held for 1 week. 3. Bupropion SR 150 mg nightly and 150 mg daily. 4. Timolol eye drops. 5. Gabapentin 300 mg nightly. 6. Hydrochlorothiazide 25 mg daily. 7. Savella 100 mg nightly. 8. Trazodone 50 mg nightly. 9. Ferrous gluconate 1 tablet daily with instructions to increase to twice a day if tolerated in the coming 3-4 days. DISCHARGE INSTRUCTIONS: I recommended a followup visit with Dr. Petey Moe in 1-2 weeks' time for reassessment of her ability to tolerate oral iron supplementation and give consideration to repeatin g blood counts and iron studies. If she does not appear to be improving in regard to her iron levels , perhaps checking celiac serology would be helpful to ensure no malabsorption issues concurrently pr esent. A followup visit with GI of the [facility] is also recommended to discuss capsule endoscopy. /[id number]/MODL
== END 2017-05-02 14:10 | disposition home or self-care (01) | DRG 378 ==
LOC: EDUNIT# → F2N 15:25 → F1N 05-01 17:10
PROVIDERS: ADMIT Family Medicine; ATTEND Family Medicine
PROC: 30233N1 Transfusion of Nonautologous Red Blood Cells into Peripheral Vein, Percutaneous Approach (ICD-10-PCS; 2017-04-29)
PROC: 0DJD8ZZ Inspection of Lower Intestinal Tract, Via Natural or Artificial Opening Endoscopic (ICD-10-PCS; principal; 2017-04-30 13:45)
PROC: 0DB98ZX Excision of Duodenum, Via Natural or Artificial Opening Endoscopic, Diagnostic (ICD-10-PCS; principal; 2017-04-30 13:45)
DX: K92.2 Gastrointestinal hemorrhage, unspecified (principal); D62 Acute posthemorrhagic anemia; D50.9 Iron deficiency anemia, unspecified; K64.4 Residual hemorrhoidal skin tags; I10 Essential (primary) hypertension; I70.0 Atherosclerosis of aorta; K21.9 Gastro-esophageal reflux disease without esophagitis; Z86.73 Personal history of transient ischemic attack (TIA), and cerebral infarction without residual deficits
CPT/HCPCS: 96374; 97116-GP; 97161-GP; G8978-GP-CI; G8979-GP-CI; J2001; J2405; J2704; J2916; J3010; P9016

== ENCOUNTER → 2017-07-16 | Outpatient (CLI) | payer OTHER ==
[~2017-07-16] MED LIST: GADOBUTROL 10 ML VIAL IVP ONE
== END ==
LOC: FIMAGING 15:22
PROVIDERS: ATTEND Family Medicine
DX: R26.81 Unsteadiness on feet (principal); G25.3 Myoclonus; E55.9 Vitamin D deficiency, unspecified; D64.9 Anemia, unspecified
CPT/HCPCS: 70548; A9585; 82565-PO

== ENCOUNTER → 2017-07-20 | Outpatient (CLI) | payer OTHER | LOC: FIMAGING 15:05 | PROVIDERS: ATTEND Internal Medicine Hematology & Oncology | DX: S50.02XA Contusion of left elbow, initial encounter (principal); M79.89 Other specified soft tissue disorders; D50.9 Iron deficiency anemia, unspecified ==

== ENCOUNTER → 2018-07-21 | Outpatient (CLI) | payer OTHER | LOC: BHFA 15:30 ==